=== PATIENT | female | born 1985 | race Caucasian/White ===

== ENCOUNTER 2022-06-25 09:04 | Day surgery (SDC) | payer BC ==
--- NOTE | 2022-06-25 07:57 | HP ---
DATE OF SURGERY: 06/25/2022 HISTORY OF PRESENT ILLNESS: The patient is a 36-year-old with aches off and on, epigastric pain radiating to the back, had back problems with discomfort after 45 minutes worse recently associated with some nausea and vomiting. It is worse with some red meat as well. She denies any jaundice or liver problems. She had study that showed she had cholelithiasis. I thought she had acute exacerbation chronic cholecystitis, symptomatic cholelithiasis. I feel she would benefit from cholecystectomy. PAST MEDICAL HISTORY: Hypertension. PAST SURGICAL HISTORY: section in the past. MEDICATIONS: Lisinopril, Adipex. ALLERGIES: PENICILLIN. FAMILY HISTORY: Breast cancer. SOCIAL HISTORY: No alcohol abuse. REVIEW OF SYSTEMS: Fourteen systems reviewed. No chest pain or palpitations. Other systems negative or noncontributory as above and per preadmission questionnaire. PHYSICAL EXAMINATION: GENERAL: No acute distress. HEENT: Sclerae nonicteric. NECK: No JVD. CHEST: Equal excursion, nonlabored breathing. CVS: Regular rate and rhythm. ABDOMEN: Soft, some mild tenderness epigastrium. No peritoneal signs. EXTREMITIES: No significant edema. NEURO: Alert, oriented, moving extremities symmetrically. PSYCH: Appropriate mood and affect. IMPRESSION: Acute exacerbation of chronic cholecystitis, symptomatic cholelithiasis. I feel the patient will benefit from cholecystectomy. Risks and benefits explained in detail including bleeding or infection, risk of trocar injury or hernia, risk of bowel, bladder or blood vessel injury, risk of bile leak, bile duct injury, retained stone or sludge possibly requiring further procedure either open or ERCP, general risk of anesthesia, deep venous thrombosis, pulmonary embolism, pneumonia, perioperative risk of aches, pains, bloating, constipation and/or loose stools possibly even chronic in nature. She understands and agrees to the planned procedure, will proceed with laparoscopic cholecystectomy possible open as an outpatient.
[~2022-06-25 09:04] MED LIST: Sensorcaine 0.25% 10 ML ONE
[2022-06-25] MEDS ORDERED: Levofloxacin 500MG/100ML D5W 500 MG/100 ML BAG IV SCH (09:15)
[2022-06-25] MEDS ORDERED: CLINDAMYCIN-D5W 900 MG/50 ML*** 900 MG/50 ML BAG IV SCH (09:30)
== END 2022-06-25 09:59 | disposition home or self-care (01) ==
LOC: SDC 09:04
PROVIDERS: ATTEND Surgery
DX: Z53.8 Procedure and treatment not carried out for other reasons (principal)
CPT/HCPCS: 81025

== ENCOUNTER 2022-07-16 10:26 | Day surgery (SDC) | payer BC ==
--- NOTE | 2022-07-16 07:50 | HP ---
DATE OF SURGERY: 07/16/2022 HISTORY OF PRESENT ILLNESS: The patient is a 36-year-old with four years off and on epigastric pain radiating to the back, discomfort worse recently associated with some nausea and vomiting. I think she mentioned worse with red meat. Denied any jaundice. Ultrasound showed multiple cholelithiasis, largest stone was reported to be 2.5 cm in diameter and there were several smaller stones. PAST MEDICAL HISTORY: Hypertension. PAST SURGICAL HISTORY: section in the past. MEDICATIONS: Adipex-P, lisinopril. ALLERGIES: PENICILLIN. FAMILY HISTORY: Breast cancer. SOCIAL HISTORY: She is a former smoker, denies alcohol abuse. REVIEW OF SYSTEMS: Fourteen systems reviewed. No chest pain or palpitations. Other systems negative or noncontributory as above and per preadmission questionnaire. PHYSICAL EXAMINATION: GENERAL: No acute distress. HEENT: Sclerae nonicteric. NECK: No JVD. CHEST: Equal excursion, nonlabored breathing. CVS: Regular rate and rhythm. ABDOMEN: Soft. No peritoneal signs. EXTREMITIES: No significant edema. NEURO: Alert, oriented, moving extremities symmetrically. No gross motor deficits noted. PSYCH: Appropriate mood and affect. IMPRESSION: She had an ultrasound show multiple cholelithiasis, largest stone was reported to be 2.5 cm in diameter and there were several smaller stones. Risks and benefits explained in detail including but not limited to bleeding or infection, risk of trocar injury or hernia, risk of bowel, bladder or blood vessel injury, risk of bile leak, bile duct injury, retained stone or sludge possibly requiring further procedure either open or ERCP. General risk of anesthesia, deep venous thrombosis, pulmonary embolism, pneumonia, perioperative risk of aches, pains, bloating, constipation and/or loose stools possibly even chronic in nature, possible need for open procedure, possibility this procedure may not improve symptoms she may need further work up and/or testing, endoscopy, other studies or procedures. She understands and agrees to the planned procedure, will proceed with laparoscopic cholecystectomy with possible open as an outpatient.
[2022-07-16] MEDS ORDERED: Levofloxacin 500MG/100ML D5W 500 MG/100 ML BAG IV ONE ×2 (10:48→10:54)
[2022-07-16] MEDS ORDERED: CLINDAMYCIN-D5W 900 MG/50 ML*** 900 MG/50 ML BAG IV ONE (10:53)
[2022-07-16] MEDS ORDERED: Lactated Ringers 1,000 ML IV SCH (11:00)
[2022-07-16] MEDS ORDERED: CLINDAMYCIN-D5W 900 MG/50 ML*** 900 MG/50 ML BAG IV SCH (11:00)
[2022-07-16] MEDS ORDERED: Versed 2 MG/2 ML Injection ONE (12:40)
[2022-07-16] MEDS ORDERED: SUBLIMAZE 250 MCG/5 ML ONE (12:41)
[2022-07-16] MEDS ORDERED: DIPRIVAN 200 MG/20 ML IV ONE (12:42)
[2022-07-16] MEDS ORDERED: Zemuron 100 MG/10 ML ONE ×2 (12:44→13:51)
[2022-07-16] MEDS ORDERED: PHENYLEPHRINE HCL ONE (13:16)
[2022-07-16] MEDS ORDERED: Lactated Ringers 1,000 ML IV ONE (13:19)
[2022-07-16] MEDS ORDERED: BRIDION 200MG/2ML IV ONE (13:52)
[2022-07-16] MEDS ORDERED: TORAdol 30 mg Injection ONE (14:18)
[2022-07-16] MEDS ORDERED: Hydromorphone 1 mg/ml Injection ONE ×2 (14:29→14:52)
[2022-07-16 16:11] VITALS: BP 124/67; PULSE 64; O2SAT 99
--- NOTE | 2022-07-17 08:02 | OP ---
SURGERY DATE/TIME: 07/16/2022 1240 PREOPERATIVE DIAGNOSIS: Acute exacerbation of chronic cholecystitis, symptomatic cholelithiasis. POSTOPERATIVE DIAGNOSIS: Acute exacerbation of chronic cholecystitis, symptomatic cholelithiasis. PROCEDURE: Laparoscopic cholecystectomy. SURGEON: Dr. Jonathan Oliveira. ANESTHESIA: General. ESTIMATED BLOOD LOSS: Minimal. INDICATIONS: As noted above. Risks and benefits explained in detail but not limited to and consent obtained. DESCRIPTION OF PROCEDURE AND FINDINGS: The patient was taken to the operating room. General anesthesia was induced. Abdomen prepped and draped in usual sterile fashion. After official time out and no disagreement with planned procedure, a transverse incision made in the supraumbilical area. Fascia grasped. Given her obesity required placing a Fausto down there pulling the fascia upward. A large Veress needle carefully inserted and tested with saline. Pneumoperitoneum accomplished insufflating opening pressure of 0-15. A 5 mm bladeless port and camera were inserted without difficulty followed by two - 5 mm right upper quadrant ports and 11 or 12 mm epigastric port. There is no evidence of any intraabdominal injury secondary to trocar insertion. The gallbladder was retracted over the edge of the liver and laterally away from Calot's triangle. Dissection carried posterior, lateral to anterior fashion slowly and carefully well skeletonized until the critical view was obtained both anteriorly and posteriorly. Once this is accomplished, the cystic duct and cystic artery were clipped x3 and divided in the usual fashion as well as a secondary oozing branch off the cystic vein clipped directly on gallbladder wall. The gallbladder is slowly and carefully dissected free from its dense attachment to liver bed. There was a small amount of bile leaking from the gallbladder site where the infundibular stump had been clipped this was reclipped and irrigated. Gallbladder slowly and carefully dissected free. It took some time given her body habitus slowly and carefully accomplished. Oozing veins up towards the anterior edge of the liver were clipped as necessary. The gallbladder is slowly and carefully dissected free. Just prior to releasing from final attachments to the anterior edge of the liver, the liver bed re-inspected. Clips noted in place in the cystic duct and cystic artery stumps. No signs of any active bleeding or bile leakage. It was felt there was no benefit from drain placement. The gallbladder was released from final attachments to anterior edge of the liver, copious amount of irrigation irrigating clear. The gallbladder is placed in the provided sac by the hospital pulled up and out the epigastrium. The site had been enlarged at the fascial defect with a clamp pulling the gallbladder out. The gallbladder was opened inside the bag and decompressed of bile. Multiple medium sized stones carefully removed with the Josep. There was a larger stone that measured 2.5 cm on the ultrasound, this was quite difficult. A combination of slightly the fascia with a clamp and mobilizing it upwards. The gallbladder and bag were able to be pulled up in the subcu. Skin incision required enlarging slightly allowing the gallbladder to be pulled free and passed off. The fascial defect was then closed with puncture closure device with figure-of-8 fashion #1 Vicryl. Copious amount of irrigation accomplished lateral to the liver and subhepatic space irrigating clear. Clips noted to be in place cystic duct and cystic artery stumps. No signs of any active bleeding or bile leakage. It was felt there was no benefit in drain placement. Pneumoperitoneum decompressed. The wound irrigated out. Skin incision closed with 4-0 Vicryl. Steri-Strips and sterile dressing applied. 0.25% Marcaine local injected along the skin incision fascial defect. The patient tolerated the procedure well. Findings discussed with the family out in the waiting area. She was transferred to the recovery room in stable condition.
== END 2022-07-16 16:27 | disposition home or self-care (01) ==
LOC: SDC 10:26
PROVIDERS: ATTEND Surgery
DX: K80.00 Calculus of gallbladder with acute cholecystitis without obstruction (principal)
CPT/HCPCS: 81025; J1170; J1885; J1956; J2250; J2370; J2704; J3010